=== PATIENT | male | born 1980 | race Caucasian/White ===

== ENCOUNTER 2016-10-24 20:44 | Emergency (ER) | payer OTHER ==
[~2016-10-24] VITALS: Ht 182.9 cm; Wt 93.2 kg
[~2016-10-24 20:44] MED LIST: ASPIR 8181 M1 PO; DAILY VALUE1 EACH PO; DAILY VITAMIN1 EAC8 PO; OMEPRAZOLE20 MG PO; OMEPRAZOLE40 M1 PO; ZANTAC150 MG PO; ZYRTEC10 M2 PO; ZYRTEC10 M3 PO
[2016-10-24 21:08] LABS: HEMATOCRIT 42.2 % (38.0-50.0); MCH 29.7 PG (29.0-34.0); MCHC 34.4 G/DL (30.0-36.0); MCV 86.3 FL (86-99); MEAN PLAT.VOLUME 9.6 uM^3 (9.0-12.4); PLATELET COUNT 218 K/uL (156-360); RBC DIS.WIDTH-SD 36.8 % (39-53); RED BLOOD COUNT 4.89 M/uL (4.00-5.50); WHITE BLOOD COUNT 4.8 K/uL (4.1-10.2)
[2016-10-24 21:19] LABS: CHLORIDE 104 mEq/L (99-109); POTASSIUM 3.8 mEq/L (3.7-5.4); SODIUM 138 mEq/L (136-147)
[2016-10-24 21:21] LABS: GLUCOSE 131 mg/dL (70-99)
[2016-10-24 21:22] LABS: ANION GAP 9 MEQ/L (2-14)
[2016-10-24 21:25] LABS: GFR ESTIMATE (CALCULATED) > 59 mL/min/; UREA NITROGEN (BUN) 12 mg/dL (9-23)
[2016-10-24 22:07] LABS: ADD MIUA? NO; BILIRUBIN NEGATIVE; BLOOD NEGATIVE; GLUCOSE (STRIP) NEGATIVE; KETONES NEGATIVE; LEUKOCYTES NEGATIVE; NITRITE NEGATIVE; PH, URINE 6.5 (5-8); PROTEIN (STRIP) NEGATIVE; SPECIFIC GRAVITY 1.006 (1.000-1.030); UCUL ADDED? NO; UROBILINOGEN 0.2 MG/DL (0.2-1.0)
[2016-10-24 22:09] LABS: COLOR LT YELLOW ((YELLOW))
[2016-10-24 22:55] VITALS: BP 138/76
== END 2016-10-24 23:09 | disposition home or self-care (01) ==
LOC: EME 20:44
PROVIDERS: Emergency Medicine
DX: R42 Dizziness and giddiness (principal); T43.695A Adverse effect of other psychostimulants, initial encounter; E78.5 Hyperlipidemia, unspecified; K21.9 Gastro-esophageal reflux disease without esophagitis; Z88.2 Allergy status to sulfonamides; Z87.891 Personal history of nicotine dependence
CPT/HCPCS: 80048; 81003; 85027; 93005; 99281; 99284